=== PATIENT | male | born 1960 | race Caucasian/White ===

== ENCOUNTER → 2021-02-11 | Outpatient (CLI) | payer BC ==
--- NOTE | 2021-02-11 08:25 | XR ---
EXAMINATION TYPE: XR chest 2V DATE OF EXAM: 02/11/2021 COMPARISON: NONE HISTORY: Shortness of breath TECHNIQUE: Frontal and lateral views of the chest are obtained. FINDINGS: Scattered senescent parenchymal changes noted. Hyperinflation compatible with COPD. No evidence for infiltrate. No evidence for atelectasis. Heart size is stable. Mediastinal structures are stable and grossly unremarkable. No evidence for hilar prominence. Degenerative changes dorsal spine. IMPRESSION: 1. No evidence for acute pulmonary disease.
== END | disposition home or self-care (01) ==
LOC: RADXRMAIN 08:00
PROVIDERS: ATTEND Family Medicine
DX: R06.02 Shortness of breath (principal)
CPT/HCPCS: 71046

== ENCOUNTER 2022-12-15 08:20 | Day surgery (SDC) | payer BC ==
[2022-12-13 10:04] VITALS: BMI 27.4
[2022-12-15] MEDS ORDERED: LACTATED RINGERS 1,000 ML IV SCH (08:31)
[2022-12-15] MEDS ORDERED: LIDOCAINE 1% (10MG/ML) FOR IV START INTRADERMA PRN (08:31)
[2022-12-15 08:45] VITALS: TEMP 97.6
--- NOTE | 2022-12-15 08:53 | P.GSHP ---
History of Present Illness H&P Date: 12/15/22 CHIEF COMPLAINT: Colon screen HISTORY OF PRESENT ILLNESS: The patient is a 62-year-old female who presents for colon screen. Lower endoscopy was offered for further evaluation and management. PAST MEDICAL HISTORY: Please see list. PAST SURGICAL HISTORY: Please see list. MEDICATIONS: Please see list. ALLERGIES: Please see list. SOCIAL HISTORY: No illicit drug use FAMILY HISTORY: No reports of Crohn disease or ulcerative colitis. REVIEW OF ORGAN SYSTEMS: CONSTITUTIONAL: No reports of fevers or chills. PHYSICAL EXAM: VITAL SIGNS: Stable GENERAL: Well-developed pleasant in no acute distress. HEENT: No scleral icterus. Extraocular movements grossly intact. Moist buccal mucosa. NECK: Supple without lymphadenopathy. CHEST: Unlabored respirations. Equal bilateral excursions. CARDIOVASCULAR: Regular rate and rhythm. Distal 2+ pulses. ABDOMEN: Soft, nontender, nondistended. MUSCULOSKELETAL: No clubbing, cyanosis, or edema. ASSESSMENT: 1. Colon screen. PLAN: 1. Recommend proceeding with a lower endoscopy Past Medical History Past Medical History: Eye Disorder, GERD/Reflux, Hypertension, Musculoskeletal Disorder, Osteoarthritis (OA) Additional Past Medical History / Comment(s): Glaucoma. Left Club Foot at . History of Any Multi-Drug Resistant Organisms: None Reported Past Surgical History: Orthopedic Surgery Additional Past Surgical History / Comment(s): Left foot surgery, colonoscopy. Past Anesthesia/Blood Transfusion Reactions: No Reported Reaction Past Psychological History: No Psychological Hx Reported Smoking Status: Current some day smoker Past Alcohol Use History: Occasional Additional Past Alcohol Use History / Comment(s): Quit smoking cigarettes 2 yrs ago, "will have a puff of a cigar once in a while". Past Drug Use History: None Reported - Past Family History Brother(s) Family Medical History: Cancer Medications and Allergies Home Medications Medication Instructions Recorded Confirmed Type Cholecalciferol [Vitamin D3 (25 25 mcg PO DAILY 12/13/22 12/13/22 History Mcg = 1000 Iu)] Ibuprofen [Motrin Ib] 600 mg PO Q8H PRN 12/13/22 12/13/22 History Latanoprost/Pf [Latanoprost 0.005% 1 drop BOTH EYES QAM 12/13/22 12/15/22 History Eye Drop] Verapamil HCl [Verapamil ER] 120 mg PO QAM 12/13/22 12/15/22 History timoloL maleate [timoloL maleate 1 applic BOTH EYES HS 12/13/22 12/15/22 History 0.25%] Allergies Allergy/AdvReac Type Severity Reaction Status Date / Time No Known Allergies Allergy Verified 12/15/22 08:34 Surgical - Exam Vital Signs Temp Pulse Resp BP Pulse Ox 97.6 F 81 16 168/84 100 12/15/22 08:37 12/15/22 08:37 12/15/22 08:37 12/15/22 08:37 12/15/22 08:37
[2022-12-15] MEDS ORDERED: PROPOFOL 10 MG/ML 20 ML VIAL IV ONE (08:57)
--- NOTE | 2022-12-15 09:15 | P.PCN ---
Date of Procedure: 12/15/22 Description of Procedure: PREOPERATIVE DIAGNOSIS: Colonoscopy screening POSTOPERATIVE DIAGNOSIS: Tubular adenoma sigmoid colon Internal hemorrhoids, grade 3 OPERATION: Colonoscopy to the ileocecal valve and appendiceal orifice, cecum Colonoscopy with cold forceps biopsy SURGEON: Katarina Whitten MD. ANESTHESIA: MAC. INDICATIONS: The patient is an 62-year-old male who presents for colonoscopy screening. Last colonoscopy 10 years. Benefits and risks were described and informed consent was obtained. DESCRIPTION OF PROCEDURE: The patient had undergone Sutab prep. The patient had been brought into the operating room and laid in the left lateral decubitus position. After adequate intravenous sedation, the rectum was examined with 2% lidocaine jelly. The prostate was unremarkable. External hemorrhoids were encountered. The rectal tone was within normal limits. No lesions were palpated in the rectal vault. An Olympus colonoscope was advanced until the cecum, ileocecal valve and appendiceal orifice were clearly viewed. The prep was excellent. No large sigmoid diverticulosis was encountered. Colonic polyps were found and removed. No evidence of focal colitis was found. Retroflexion of the scope demonstrated grade 3 internal hemorrhoids without active bleeding or inflammation. The colon was desufflated. The patient had tolerated the procedure well. Withdrawal time was over 6 minutes. FINDINGS: Aronchick preparation quality scale 1 (1-5) Internal hemorrhoids, grade 3 External hemorrhoids, grade 3. No arteriovenous malformations. No large sigmoid diverticulosis Removal of 1 polyp: - Cold forceps biopsy at 20 cm from the anal verge, 5 mm adenoma. No focal colitis. RECOMMENDATIONS: Repeat colonoscopy 3 years, 2025 Plan - Discharge Summary Discharge Rx Participant: No New Discharge Prescriptions: Continue Latanoprost/Pf [Latanoprost 0.005% Eye Drop] 1 drop BOTH EYES QAM Ibuprofen [Motrin Ib] 600 mg PO Q8H PRN PRN Reason: Pain Cholecalciferol [Vitamin D3 (25 Mcg = 1000 Iu)] 25 mcg PO DAILY Verapamil HCl [Verapamil ER] 120 mg PO QAM timoloL maleate [timoloL maleate 0.25%] 1 applic BOTH EYES HS Discharge Medication List Cholecalciferol [Vitamin D3 (25 Mcg = 1000 Iu)] 25 mcg PO DAILY 12/13/22 [History] Ibuprofen [Motrin Ib] 600 mg PO Q8H PRN 12/13/22 [History] Latanoprost/Pf [Latanoprost 0.005% Eye Drop] 1 drop BOTH EYES QAM 12/13/22 [History] Verapamil HCl [Verapamil ER] 120 mg PO QAM 12/13/22 [History] timoloL maleate [timoloL maleate 0.25%] 1 applic BOTH EYES 12/13/22 [History] Follow up Appointment(s)/Referral(s): Katarina Whitten MD [STAFF PHYSICIAN] - As Needed Patient Instructions/Handouts: Colorectal Polyps (GEN) Activity/Diet/Wound Care/Special Instructions: Repeat colonoscopy 3 years, 2025 Discharge Disposition: HOME SELF-CARE
[2022-12-15 09:51] VITALS: BP 144/79; PULSE 61; RESP 16
== END 2022-12-15 10:16 | disposition home or self-care (01) ==
LOC: ORWHC2ENDO 08:20
PROVIDERS: ATTEND Surgery Plastic and Reconstructive Surgery
DX: Z12.11 Encounter for screening for malignant neoplasm of colon (principal); K63.5 Polyp of colon; K64.2 Third degree hemorrhoids; K64.4 Residual hemorrhoidal skin tags; K21.9 Gastro-esophageal reflux disease without esophagitis; F17.200 Nicotine dependence, unspecified, uncomplicated; I10 Essential (primary) hypertension; M19.90 Unspecified osteoarthritis, unspecified site; Z86.69 Personal history of other diseases of the nervous system and sense organs; Z98.890 Other specified postprocedural states; Z86.59 Personal history of other mental and behavioral disorders; Z79.899 Other long term (current) drug therapy
CPT/HCPCS: 45380; J2704; 88305

== ENCOUNTER → 2025-01-07 | Outpatient (CLI) | payer MEDICARE, OTHER ==
--- NOTE | 2025-01-08 11:07 | CA ---
Transthoracic Echo Report Name: Seferino Gee Age: 64 Gender: M : 1960 Exam Date: 01/07/2025 13:43 Exam Location: [facility] Ht (in): 66 Wt (lb): 175 Ordering Physician: Elver Chaidez MD Attending/Referring Phys: Elver Chaidez MD Group Program Manager [address] TONJA Procedure CPT: Indications: I10 ESSENTIAL (PRIMARY) HYPERTENSION Cardiac Hx: Technical Quality: Good Contrast 1: Total Dose (mL): Contrast 2: Total Dose (mL): MEASUREMENTS (Male / Female) Normal Values 2D ECHO LV Diastolic Diameter PLAX 3.9 cm 4.2 - 5.9 / 3.9 - 5.3 cm LV Systolic Diameter PLAX 2.7 cm IVS Diastolic Thickness 1.0 cm 0.6 - 1.0 / 0.6 - 0.9 cm LVPW Diastolic Thickness 1.2 cm 0.6 - 1.0 / 0.6 - 0.9 cm LV Relative Wall Thickness 0.6 LVOT Diameter 1.9 cm LV Diastolic Volume MOD BP 83.4 cm??? 67 - 155 / 56 - 104 cm??? LV Systolic Volume MOD BP 33.1 cm??? 22 - 58 / 19 - 49 cm??? LV Ejection Fraction MOD BP 60.3 % >= 55 % LV Cardiac Index MOD BP 1887.7 cm???/min???m??? LV Diastolic Volume MOD 4C 93.1 cm??? LV Systolic Volume MOD 4C 40.5 cm??? LV Ejection Fraction MOD 4C 56.5 % LV Cardiac Index MOD 4C 1975.7 cm???/min???m??? LV Diastolic Length 4C 8.3 cm LV Systolic Length 4C 6.7 cm LV Diastolic Volume MOD 2C 60.5 cm??? LV Systolic Volume MOD 2C 21.8 cm??? LV Ejection Fraction MOD 2C 64.0 % LV Cardiac Index MOD 2C 1455.3 cm???/min???m??? LV Diastolic Length 2C 6.8 cm LV Systolic Length 2C 5.4 cm LA Volume 55.8 cm??? 18 - 58 / 22 - 52 cm??? LA Volume Index 28.7 cm???/m??? 16 - 28 cm???/m??? DOPPLER AV Peak Velocity 145.0 cm/s AV Peak Gradient 8.4 mmHg AV Mean Velocity 92.6 cm/s AV Mean Gradient 4.0 mmHg AV Velocity Time Integral 24.5 cm LVOT Peak Velocity 104.3 cm/s LVOT Peak Gradient 4.4 mmHg LVOT Velocity Time Integral 17.6 cm LVOT Stroke Volume 52.1 cm??? LVOT Stroke Volume Index 27.5 ml/m??? LVOT Cardiac Index 1956.2 cm???/min???m??? AV Area Cont Eq vti 2.1 cm??? AV Area Cont Eq pk 2.1 cm??? MV Area PHT 3.9 cm??? Mitral E Point Velocity 58.9 cm/s Mitral A Point Velocity 72.7 cm/s Mitral E to A Ratio 0.8 MV Deceleration Time 193.7 ms TR Peak Velocity 234.3 cm/s TR Peak Gradient 22.0 mmHg Right Atrial Pressure 5.0 mmHg Pulmonary Artery Systolic Pressu 27.0 mmHg Right Ventricular Systolic Press 27.0 mmHg PV Peak Velocity 113.3 cm/s PV Peak Gradient 5.1 mmHg FINDINGS Left Ventricle Left ventricular ejection fraction is estimated at 55-60 %. Left ventricular cavity size normal.Normal left ventricular systolic function with no obvious regional wall motion abnormalities. Mildly increased left ventricular wall thickness. Right Ventricle Normal right ventricular size and function. Right ventricular systolic pressure within normal limits. Right Atrium Normal right atrial size. Left Atrium Normal left atrial size. Mitral Valve Structurally normal mitral valve. No evidence for mitral valve prolapse. No mitral stenosis. Trace mitral regurgitation. Aortic Valve Trileaflet aortic valve. No aortic stenosis. valve sclerosis. Tricuspid Valve Structurally normal tricuspid valve. No tricuspid stenosis. Mild tricuspid regurgitation. Pulmonic Valve Structurally normal pulmonic valve. No pulmonic stenosis. Trace pulmonic regurgitation. Pericardium No pericardial effusion. Aorta Normal size aortic root and proximal ascending aorta. CONCLUSIONS 1. Normal left ventricular size and systolic function 2. Mild tricuspid regurgitation with no evidence of pulmonary hypertension Previewed by: Dr. Alfred Mcdonough MD (Electronically Signed) Final Date: 08 January 2025 11:07
== END | disposition home or self-care (01) ==
LOC: RADECHMAIN 13:40
PROVIDERS: ATTEND Family Medicine
DX: I08.1 Rheumatic disorders of both mitral and tricuspid valves (principal); I10 Essential (primary) hypertension
CPT/HCPCS: 93306

== ENCOUNTER → 2025-01-09 | Outpatient (CLI) | payer MEDICARE, OTHER | END | disposition home or self-care (01) | LOC: RADNMMAIN 08:01 | PROVIDERS: ATTEND Family Medicine | DX: Z53.9 Procedure and treatment not carried out, unspecified reason (principal) ==

== ENCOUNTER → 2025-01-11 | Outpatient (CLI) | payer MEDICARE, OTHER ==
[2025-01-11 10:17] LABS: Basophils # (A) 0.03 X 10*3/uL (0.00-0.10); Basophils % (A) 0.4 %; Eosinophils # (A) 0.23 X 10*3/uL (0.04-0.35); Eosinophils % (A) 3.1 %; HCT 41.8 % (39.6-50.0); HGB 13.8 g/dL (13.0-17.0); Lymphocytes # (A) 1.19 X 10*3/uL (0.90-5.00); Lymphocytes % (A) 16.1 %; MCH 28.9 pg (27.0-32.0); MCV 87.4 FL (80.0-97.0); Mean Platelet Volume 9.9 FL (9.5-12.2); Monocytes # (A) 0.67 X 10*3/uL (0.20-1.00); NRBC Per 100 WBC 0 X 10*3/uL (0.00-0.01); Neutrophils # (A) 5.27 X 10*3/uL (1.80-7.70); Neutrophils % (A) 71.1 %; Platelet Count 335 X 10*3/uL (140-440); RBC 4.78 X 10*6/uL (4.40-5.60); RDW 13.3 % (11.5-14.5); WBC 7.41 X 10*3/uL (4.50-10.00)
[2025-01-11 10:38] LABS: ALT 34 U/L (10-49); AST 21 U/L (14-35); Albumin 4.3 g/dL (3.8-4.9); Albumin/Globulin Ratio 1.43 Ratio (1.60-3.17); Alkaline Phosphatase 110 U/L (41-126); BUN/Creat Ratio 12.14 Ratio (12.00-20.00); Blood Urea Nitrogen 8.5 mg/dL (9.0-27.0); Calcium 9.3 mg/dL (8.7-10.3); Carbon Dioxide 21.5 mmol/L (21.6-31.8); Chloride 101 mmol/L (96-109); Glucose 102 mg/dL (70-110); LDL Cholesterol,Calculated 109.2 mg/dL (0.0-131.0); Potassium 4.4 mmol/L (3.5-5.5); Prostate Specific Antigen 1.16 ng/mL (0.000-4.500); Sodium 134 mmol/L (135-145); Total Bilirubin 0.3 mg/dL (0.3-1.2); Total Protein 7.3 g/dL (6.2-8.2)
== END | disposition home or self-care (01) ==
LOC: LABWHC1 07:03
PROVIDERS: ATTEND Family Medicine
DX: Z12.5 Encounter for screening for malignant neoplasm of prostate (principal); E78.5 Hyperlipidemia, unspecified
CPT/HCPCS: 36415; 80053; 80061; 84153; 84443; 85025; 86140